=== PATIENT | female | born 1950 | race Native Hawaiian/Other Pacific Islander ===

== ENCOUNTER 2018-03-06 09:05 | Outpatient (CLI) | payer SELFPAY | END 2018-03-06 09:06 | disposition home or self-care (01) | LOC: C.LAB 09:05 | DX: I10 Essential (primary) hypertension (principal) ==

== ENCOUNTER 2018-04-04 09:50 | Outpatient (CLI) | payer SELFPAY | END 2018-04-04 09:51 | disposition home or self-care (01) | LOC: C.LAB 09:50 ==

== ENCOUNTER 2018-04-29 10:32 | Outpatient (CLI) | payer SELFPAY | END 2018-04-29 10:33 | disposition home or self-care (01) | LOC: C.LAB 10:32 ==